=== PATIENT | male | born 1985 | race Caucasian/White ===

== ENCOUNTER 2018-05-27 11:13 | Emergency (ER) | payer MEDICAID ==
[~2018-05-27] VITALS: Ht 177.8 cm; Wt 104.5 kg
[2018-05-27 12:19] VITALS: Ht 177.8 cm; Wt 104.5 kg
[2018-05-27] MEDS ORDERED: CLEOCIN HCL300 MG PO (12:23)
[2018-05-27] MEDS ORDERED: VOLTAREN75 MG PO (15:22)
[2018-05-27] MEDS ORDERED: VIBRAMYCIN 100100 MG PO (15:22)
[2018-05-27 16:55] VITALS: BP 115/68
== END 2018-05-27 16:56 | disposition home or self-care (01) ==
LOC: D.ER 11:13
DX: L03.116 Cellulitis of left lower limb (principal)

== ENCOUNTER 2020-01-01 05:13 | Emergency (ER) | payer MEDICAID ==
[~2020-01-01] VITALS: Ht 177.8 cm; Wt 95.5 kg
[~2020-01-01 05:13] MED LIST: CLEOCIN HCL300 MG PO; VIBRAMYCIN 100100 MG PO; VOLTAREN75 MG PO
[2020-01-01 05:16] VITALS: Ht 177.8 cm; Wt 95.5 kg
[2020-01-01 05:54] LABS: BASOPHILS 0.4 % (0-2); EOSINOPHILS 1.4 % (0-7); HEMATOCRIT 50.4 % (42.0-54.0); HEMOGLOBIN 16.8 g/dL (13.5-17.5); IMMATURE GRANULOCYTES 0.2 % (0-5); LYMPHOCYTES 33.7 % (15-50); MCH 30.9 pg (26.0-34.0); MCHC 33.3 g/dL (31.0-37.0); MCV 92.8 fL (80.0-100.0); MEAN PLATELET VOLUME 10.1 fL (7.4-10.4); MONOCYTES 7.9 % (2-11); NEUTROPHILS 56.4 % (40-80); PLATELET COUNT 263 10x3/uL (130-400); RBC 5.43 10x6/uL (4.20-6.10); RDW 13.3 % (11.5-14.5); WBC 10.6 10x3/uL (4.8-10.8)
[2020-01-01 06:03] LABS: APTT 25.9 SECONDS (22.8-39.4); CALC OSMOLALITY 285 mosm/kg (275-300); CALCIUM 8.4 mg/dL (8.5-10.1); CARBON DIOXIDE 26.1 mmol/L (21.0-32.0); CHLORIDE - SERUM 105 mmol/L (98-107); CREATININE - SERUM 1.1 mg/dL (0.6-1.3); GLUCOSE 101 mg/dL (74-106); INR 0.94 (0.85-1.17); POTASSIUM - SERUM 4.2 mmol/L (3.5-5.1); PROTIME 12.5 SECONDS (11.6-15.0); SODIUM 144 mmol/L (136-145); UREA NITROGEN 10 mg/dL (7-18); eGFR NON AFRICAN AMERICAN 82 mL/min (90-120)
[2020-01-01 06:09] LABS: ALKALINE PHOSPHATASE 123 U/L (30-120); ALT (SGPT) 37 U/L (10-68); BILIRUBIN - TOTAL 0.45 mg/dL (0.2-1.3); PROTEIN - SERUM 7.3 g/dL (6.4-8.2)
[2020-01-01] MEDS ORDERED: AUGMENTIN 875-11 TAB PO (06:45)
[2020-01-01 07:04] VITALS: BP 125/57
== END 2020-01-01 07:04 | disposition home or self-care (01) ==
LOC: D.ER 05:13
PROVIDERS: Family Medicine
DX: S31.119A Laceration without foreign body of abdominal wall, unspecified quadrant without penetration into peritoneal cavity, initial encounter (principal); W45.8XXA Other foreign body or object entering through skin, initial encounter; Y93.9 Activity, unspecified; Y92.9 Unspecified place or not applicable